=== PATIENT | female | born 1970 | race Two or more races ===

== ENCOUNTER → 2024-08-29 | Outpatient (CLI) | payer BC, SELFPAY ==
[2024-08-29 10:45] LABS: Basophils # (Auto) 0.1 Thou/mm3 (0.0-0.2); Basophils % (Auto) 1 % (0-2.5); Eosinophils # (Auto) 0.6 Thou/mm3 (0.0-0.5); Eosinophils % (Auto) 4 % (0-10); Hematocrit 38.3 % (36.0-46.0); Hemoglobin 12.6 g/dL (12.0-16.0); Immature Granulocytes % (Auto) 1 % (0-0); Immature Granulocytes Auto 0.06 Thou/mm3 (0.00-0.00); Lymphocytes # (Auto) 4.2 Thou/mm3 (1.0-4.8); Lymphocytes % (Auto) 32 % (10-50); Mean Corpuscular HGB Conc 32.9 g/dl (31.0-37.0); Mean Corpuscular Hemoglobin 29.6 pg (25.0-35.0); Mean Corpuscular Volume 90 fL (80-100); Monocytes # (Auto) 0.7 Thou/mm3 (0.0-0.8); Monocytes % (Auto) 5 % (0-12); Neutrophils # (Auto) 7.5 Thou/mm3 (1.8-7.7); Neutrophils % (Auto) 57 % (37-80); Nucleated Red Blood Cell % 0 /100 WBC (0); Platelet Count 318 Thou/mm3 (140-440); RDW Standard Deviation 42.8 fL (36.4-46.3); Red Blood Count 4.25 Miln/mm3 (4.00-5.20); White Blood Count 13.1 Thou/mm3 (3.6-11.0)
[2024-08-29 11:10] LABS: Alanine Aminotransferase 60 U/L (10-49); Albumin, Serum 4.1 gm/dL (3.5-5.0); Albumin/Globulin Ratio 1.4 (1.2-2.2); Alkaline Phosphatase 122 U/L (46-116); Anion Gap 8 (7-16); Aspartate Amino Transferase 37 U/L (0-34); BUN/Creatinine Ratio 16 Ratio (12-20); Bilirubin,Total 0.3 mg/dL (0.3-1.2); Blood Urea Nitrogen 11 mg/dL (9-23); Calcium 9.6 mg/dL (8.3-10.6); Calcium (Corrected) 9.6 mg/dL (8.5-10.1); Carbon Dioxide 27.8 mMol/L (20.0-31.0); Chloride 104 mMol/L (98-107); Creatinine (Component) 0.7 mg/dL (0.6-1.3); Glucose 105 mg/dL (74-106); Osmolality,Calculated 278 (275-295); Potassium 4.4 mMol/L (3.4-5.1); Sodium 140 mMol/L (136-145); Total Protein 7.1 gm/dL (5.7-8.2); eGFR > 60 See Note
[2024-08-29 11:15] LABS: INR 0.9 (0.9-1.3); Partial Thromboplastin Time 25.3 Seconds (22.0-36.0)
== END | disposition home or self-care (01) ==
PROVIDERS: PCP Family Medicine; Referring Provider Internal Medicine Gastroenterology; Visit Provider Internal Medicine Hematology & Oncology
DX: C50.412 Malignant neoplasm of upper-outer quadrant of left female breast (principal); R10.9 Unspecified abdominal pain
CPT/HCPCS: 36415; 80053; 85025; 85610; 85730

== ENCOUNTER 2024-09-29 14:29 | Outpatient (RCR) | payer BC, SELFPAY ==
--- NOTE | 2024-10-16 16:04 | CTCFLWUP_ITS ---
Patient: TESSA THOMAS : 1970 Page 5 of 6 FOLLOW UP NOTE DATE OF SERVICE: 09/29/2024 NAME: TESSA THOMAS ACCOUNT: [id number] : 1970 AGE: 54 INTERVAL HISTORY: No new compains ONCOLOGY HISTORY: DIAGNOSIS: Malignant neoplasm of upper-outer quadrant of left female breast [ICD10] C50.412 DCIS HISTORY OF PRESENT ILLNESS: Tessa Thomas is a 54-year-old ENG speaking female with following oncology history. Ms. Thomas had hysterectomy done in 2005 for benign tumor. Ms. Thomas started noticing a lump along with pain and itching and later part of 2022. 04/27/2023: Ms. Thomas had bilateral screening mammograms 06/24/2023: left breast ultrasound? 06/24/2023: Diagnostic left breast mammogram 08/03/2023: Left breast stereotactic core biopsy? 10/09/2023: Ms. Thomas had left breast lumpectomy 11/18/2023: Serum estradiol 61, FSH 6.4. 12/10/2023: Ms. Thomas is started on tamoxifen 20 mg p.o. daily. 01/08/2024: Ms. Thomas stopped taking tamoxifen. Unfortunately she was having generalized itching, headaches, dizzy spells as well as bruising. 01/14/2024: Ms. Thomas saw Dr. Tanner, radiation oncologist and decided not to have adjuvant radiation therapy. OTHER MEDICAL HISTORY/CONDITIONS: Left breast DCIS Fibromyalgia Hx [place] Fever Recent dx HPylori - completed treatment Left breast radiofrequency guided tylectomy; tissue rearrangement; excision skin cyst left breast upperinner quardrant - 10/09/2023 ELVIRA- 2006 Cholecystectomy - 30yrs ago ?Clone Other Med Hx? FAMILY HISTORY: Cancer History:?Pateranl grandfather- prostate - dx 60's ?Clone Family Hx? 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 Tobacco?Pack?per?Day:?0 Tobacco?Use:?Denies ETOH?Use:?Denies Drug?Note:?Denies Social?History?Note:?Lives?with?dtr ?Clone Social Hx? SENIOR RECEPTIONIST HISTORY: Menarche?-?Age:?10 Menopause:?2006 :?3 Live?Births:?3 Age?1st?:?15 ?Clone SENIOR RECEPTIONIST Hx? MEDICATIONS: 1. Flexeril - 10 mg 1 tab Daily 2. ondansetron - 8 mg 1 tab Daily 3. tamoxifen - 10 mg 1 tab Daily 4. Zofran - 4 mg 1 tab one tab po three times a day prn nausea?[place]ra Meds? Medications Last Reconciled by Renu Bojorquez MA on 09/29/2024 ALLERGIES: No Known Drug Allergies REVIEW OF SYSTEMS: A complete 14-point review of systems was performed and is negative except as noted in interval history. PHYSICAL EXAMINATION: VITAL SIGNS: Temperature?98.2, B/P?139/84, Oxygen?Saturation?100% Weight?222?lbs PAIN: 0 - No pain ECOG Performance Status: 0 - Asymptomatic and fully active GENERAL APPEARANCE: Appears well, in no apparent distress, appropriately interactive. HEENT: Normocephalic, no temporal wasting, normal conjunctiva, no scleral icterus, normal hearing, lips without lesions, neck normal range of motion. CARDIOVASCULAR: Not assessed. PULMONARY: Normal respiratory effort, no respiratory distress or use of accessory muscles, speaking in full sentences, no tachypnea. EXTREMITIES: No pedal edema or cyanosis. SKIN: Normal skin appearance. NEUROLOGIC: Alert and oriented x4. PSHYCHIATRIC: Appropriate affect, mood normal, behavior normal, intact thought and speech. No masses in breast LABORATORY DATA: I have personally reviewed and interpreted each of the patient?s relevant lab tests, abnormal findings are below: Date 08/29/24 ??WHITE?BLOOD?COUNT?(Thou/mm3) 13.1?H ??RED?BLOOD?COUNT?(Miln/mm3) 4.25 ??HEMOGLOBIN?(gm/dl) 12.6 ??HEMATOCRIT?(%) 38.3 ??PLATELET?COUNT?(Thou/mm3) 318 ??NEUTROPHILS?%,?AUTO?(%) 57 ??LYMPH?%,?AUTO?(%) 32 ??NEUTROPHILS,?AUTO?(Thou/mm3) 7.5 ASSESSMENT/PLAN: Since last visit Ms. Thomas has seen Dr. Carter vaccines solutions specialist who informed her that she is premenopausal. I do not have any notes from Dr. Carter's office. 1 )DCIS of the left breast, ER positive, [place] positive Premenopausal status (estradiol 61, FSH 6.4 on 11/18/2023) Ms. Thomas decided not to have adjuvant radiation therapy in view of decision RT results. Unable to tolerate tamoxifen which was causing nausea, itching without any hives and fatigue. S/p lumpectomy (10/09/2023) .restarted on loss dose tamoxifen 10 mg daily Ms. Thomas had bone density test on 12/04/2023 which showed normal mineralization. other problems Fibromyalgia. History of H. pylori infection. History of hysterectomy in 2005 for benign tumor. ORDERS: Cbc,cmp, RETURN TO CLINIC: [facility] BILLING AND COMPLIANCE: I reviewed external records from providers outside my specialty as summarized above. I spent a total of 50 minutes on this patient?s care on the day of their visit excluding time spent related to any billed procedures. This time includes time spent with the patient as well as time spent documenting in the medical record, reviewing patients records and tests, obtaining history, placing orders, communicating with other healthcare professionals, counseling the patient, family or caregiver, and/or care coordination for the diagnoses above. Electronically Signed by: Francisco Javier Goncalves MD T: 4:02 PM CC: PCP: Ezequiel Smith Referring: Ezequiel Smith This document was completed utilizing speech recognition software. Grammatical errors, random word insertions, pronoun errors, and incomplete sentences are an occasional consequence of this system due to software limitations, ambient noise, and hardware issues. Any formal questions or concerns about the content, text or information contained within the body of this dictation should be directly addressed to the provider for clarification.
== END 2024-10-14 23:59 | disposition home or self-care (01) ==
LOC: SCTC 14:29
PROVIDERS: PCP Family Medicine; Referring Provider Family Medicine; Visit Provider Internal Medicine Hematology & Oncology
DX: D05.12 Intraductal carcinoma in situ of left breast (principal); Z17.0 Estrogen receptor positive status [ER+]; Z17.21 Progesterone receptor positive status; Z90.12 Acquired absence of left breast and nipple; Z79.810 Long term (current) use of selective estrogen receptor modulators (SERMs)
CPT/HCPCS: 99212; G0463

== ENCOUNTER → 2025-01-24 | Outpatient (CLI) | payer BC, SELFPAY ==
--- NOTE | 2025-01-24 16:39 | XR_ITS ---
Examination: PA lateral chest 2 views TECHNIQUE: Upright PA and lateral chest 2 views Date and time: January 24, 2025 1655 hours Comparison August 18, 2023 INDICATIONS: History pneumonia beginning one week ago. FINDINGS: No significant cardiac enlargement Mildly ectatic thoracic aorta. No current pneumonia No pulmonary edema IMPRESSION: No current pneumonia identified
== END | disposition home or self-care (01) ==
PROVIDERS: PCP Family Medicine; Referring Provider Family Medicine; Visit Provider Family Medicine
DX: I77.810 Thoracic aortic ectasia (principal)
CPT/HCPCS: 71046

== ENCOUNTER → 2025-02-21 | Outpatient (CLI) | payer BC, SELFPAY ==
--- NOTE | 2025-02-21 16:52 | XR_ITS ---
Examination: Sinus series 3 views TECHNIQUE: Adela Yeung lateral sinus series 3 views Date and time: February 21, 2025 1701 hours INDICATIONS: Sinus pressure and pain 3 weeks FINDINGS: Opacity in the frontal ethmoid air cells. Mucosal thickening up to 3 mm in the maxillary antra Haziness in the sphenoid air cells. No retention cyst. No fluid levels IMPRESSION: Chronic sinusitis
== END | disposition home or self-care (01) ==
PROVIDERS: PCP Family Medicine; Referring Provider Family Medicine; Visit Provider Family Medicine
DX: J32.0 Chronic maxillary sinusitis (principal)
CPT/HCPCS: 70220

== ENCOUNTER → 2025-02-27 | Outpatient (CLI) | payer BC, SELFPAY ==
[2025-02-27 17:39] LABS: Alanine Aminotransferase 30 U/L (10-49); Albumin, Serum 4.0 gm/dL (3.5-5.0); Alkaline Phosphatase 105 U/L (46-116); Amylase 56 U/L (30-118); Aspartate Amino Transferase 22 U/L (0-34); Bilirubin,Direct 0.1 mg/dL (0.0-0.3); Bilirubin,Total 0.4 mg/dL (0.3-1.2); Lipase 35 U/L (12-53); Total Protein 7.1 gm/dL (5.7-8.2)
== END | disposition home or self-care (01) ==
LOC: COPL 17:04
PROVIDERS: PCP Family Medicine; Referring Provider Internal Medicine Gastroenterology; Visit Provider Internal Medicine Gastroenterology
DX: R10.9 Unspecified abdominal pain (principal)
CPT/HCPCS: 36415; 80076; 82150; 83690